=== PATIENT | female | born 1980 ===

== ENCOUNTER → 2017-11-02 | Outpatient (CLI) | payer OTHER, BC | LOC: LAB SHORT 12:02 → LAB 12:02 | PROVIDERS: Registered Nurse Community Health | DX: Z12.4 Encounter for screening for malignant neoplasm of cervix (principal) | CPT/HCPCS: 87624; G0123 ==

== ENCOUNTER 2018-01-05 21:51 | Emergency (ER) | payer OTHER, BC ==
[~2018-01-05] VITALS: Ht 177.8 cm; Wt 72.1 kg
[2018-01-05] MEDS ORDERED: IBUP600 PO (22:12)
[2018-01-05] MEDS ORDERED: Depo-Prove400 MG/1 M IM (22:12)
[2018-01-06] MEDS ORDERED: Augmentin 875-1 EACH PO (00:15)
[2018-01-06] MEDS ORDERED: Norco 5-325 Ta1 EACH PO (00:15)
== END 2018-01-06 00:27 | disposition home or self-care (01) ==
LOC: ER 21:51
DX: K08.89 Other specified disorders of teeth and supporting structures (principal); Z88.5 Allergy status to narcotic agent; Z79.899 Other long term (current) drug therapy; Z79.2 Long term (current) use of antibiotics; F17.210 Nicotine dependence, cigarettes, uncomplicated

== ENCOUNTER → 2021-07-01 | Outpatient (CLI) | payer OTHER, BC ==
[~2021-07-01] MED LIST: Augmentin 875-1 EACH PO; Depo-Prove400 MG/1 M IM; IBUP600 PO; Norco 5-325 Ta1 EACH PO
[2021-07-05 14:07] LABS: HPV 16 Negative (Negative); HPV 18 Negative (Negative); HPV OTHER HR TYPES Negative (Negative)
== END | disposition home or self-care (01) ==
LOC: LAB SHORT 19:24
PROVIDERS: Family Medicine
DX: Z01.419 Encounter for gynecological examination (general) (routine) without abnormal findings (principal)
CPT/HCPCS: 87624; G0123

== ENCOUNTER → 2022-06-21 | Outpatient (CLI) | payer OTHER, BC | END | disposition home or self-care (01) | LOC: LAB SHORT 11:20 | DX: N39.0 Urinary tract infection, site not specified (principal) | CPT/HCPCS: 87077; 87086; 87186 ==